=== PATIENT | male | born 1950 | race Caucasian/White ===

== ENCOUNTER 2022-09-18 15:06 | Emergency (ER) | payer OTHER ==
[~2022-09-18] VITALS: Ht 162.6 cm; Wt 83.9 kg
[2022-09-18 16:21] LABS: BASOPHILS % (AUTO) 0.6 % (0.0-2.0); EOSINOPHILS % (AUTO) 1.9 % (0.0-6.0); HEMATOCRIT 48 % (39-51); HEMOGLOBIN 16.1 g/dL (13.5-17.5); LYMPHOCYTES # (AUTO) 3.6 K/uL (0.8-4.8); LYMPHOCYTES % (AUTO) 44.2 % (20.0-44.0); MEAN CORPUSCULAR HGB CONC 34 g/dl (31.0-36.0); MEAN CORPUSCULAR VOLUME 94 fL (80-96); MONOCYTES # (AUTO) 0.4 K/uL (0.1-1.30); MONOCYTES % (AUTO) 4.7 % (2.0-12.0); NEUTROPHILS # (AUTO) 3.9 K/uL (1.8-8.9); NEUTROPHILS % (AUTO) 48.6 % (43.0-81.0); PLATELET COUNT (AUTO) 237 K/uL (150-450); RED BLOOD CELL COUNT(AUTO) 5.09 MIL/uL (4.5-6.0); WHITE BLOOD COUNT (AUTO) 8.1 K/uL (4.3-11.0)
[2022-09-18 16:33] LABS: CREATININE 0.9 mg/dL (0.6-1.3); POTASSIUM 3.7 mmol/L (3.5-5.1)
[2022-09-18 16:50] LABS: ALBUMIN 3.6 g/dL (3.4-5.0); BILIRUBIN,DIRECT 0.2 mg/dL (0.0-0.2); BILIRUBIN,TOTAL 0.4 mg/dL (0.2-1.0); TOTAL PROTEIN, SERUM 7.7 g/dL (6.4-8.2)
--- NOTE | 2022-09-18 16:54 | NUR ---
BIB [facility] OFFIC[employer],CALLED HIS SON AFTER DRINKING ALCOHOL THAT HE WILL KILL HIMSELF WITH A SCREWDRIVER. ON ROOM AIR. ON 5150 HOLD BY CRUZ. SITTER AT BEDSIDE. WILL CONTINUE TO MONITOR ACCORDINGLY.
--- NOTE | 2022-09-18 17:45 | NUR ---
urine collected and sent to lab.
--- NOTE | 2022-09-18 18:07 | NUR ---
CALLED [facility] [phone] DR. ALDANA WILL CALL US BACK.
[2022-09-18 19:01] LABS: BILIRUBIN,URINE NEGATIVE (NEGATIVE); COLOR,URINE YELLOW (YELLOW); LEUKOCYTE ESTERASE ,URINE NEGATIVE (NEGATIVE); NITRITE, URINE NEGATIVE (NEGATIVE); PH,URINE 6.5 (5.0-8.0); PROTEIN,URINE NEGATIVE (NEGATIVE); UGLUCOSE NEGATIVE (NEGATIVE); UROBILINOGEN,URINE 0.2 EU/dL (0.2)
--- NOTE | 2022-09-18 21:10 | NUR ---
CALLED [facility], PTS BLOOD ALC LEVLS NEED TO BE 150 IN ORDER TO TRANSFER
--- NOTE | 2022-09-19 02:05 | NUR ---
rec'd a call from Dr. Vázquez from [place]. was updated about the new alcodol level. Dr. Vázquez will reffer the patient to psych and requested a recent alcohol level.
--- NOTE | 2022-09-19 03:31 | NUR ---
faxed clinicals to [facility] find at [phone]
--- NOTE | 2022-09-19 05:12 | NUR ---
SPOKE TO NELA AT [facility]IND[facility] AT [phone]. PER HIM THEY ARE WAITING FOR [facility] TO FIND A BED AND INFORM US.
--- NOTE | 2022-09-19 07:15 | NUR ---
RECEVED PT FROM CARELINE RN PT AWAKE AND SITTTING UP RESPIRATION SPONT AND EASY
--- NOTE | 2022-09-19 07:28 | NUR ---
DAUGHTER, CHATA [phone]
--- NOTE | 2022-09-19 07:40 | NUR ---
PT ON 8770 FOR SI/ HI ON 09/18/22 AT 1610 BY CRUZ
[2022-09-19] MEDS ORDERED: LORAZEPAM INJ 2 MG/ML VIAL IV ONE (08:00)
[2022-09-19] MEDS ORDERED: LORAZEPAM 1 MG TABLET ONE ×2 (08:02→13:02)
[2022-09-19] MEDS ORDERED: LORAZEPAM 1 MG TABLET PO ONE ×2 (08:30→13:00)
--- NOTE | 2022-09-19 09:50 | NUR ---
DR. BETANCOURT HERE TO SEE PT FOR PSCHY EVALUATION PT AWAKE AND ALERT USED [facility] [employer] CRANE OPERATOR BY LEONARDO KEANE
--- NOTE | 2022-09-19 11:34 | NUR ---
RESTING AND ASLEEPY NO PAIN OR SOB
--- NOTE | 2022-09-19 13:04 | NUR ---
PT ACCEPTED AT [facility] [address] GIVE REPORT TO [phone] PRN PICKUP ETA 1400
[2022-09-19 14:30] VITALS: BP 139/91
--- NOTE | 2022-09-19 14:31 | NUR ---
KAR Lam PANTOGRAPH I ENGRAVER TO [facility]
== END 2022-09-19 14:53 ==
LOC: ER 15:08
DX: R45.851 Suicidal ideations (principal); F10.229 Alcohol dependence with intoxication, unspecified; Y90.8 Blood alcohol level of 240 mg/100 ml or more; R03.0 Elevated blood-pressure reading, without diagnosis of hypertension; Z20.822 Contact with and (suspected) exposure to COVID-19
CPT/HCPCS: 99285; 85025; 80048; 80076; 81003; 36415 ×2; 87426; 80143; 80320 ×3; 80307; C9803; G0480